=== PATIENT | female | born 1950 | race Caucasian/White ===

== ENCOUNTER → 2016-12-01 | Outpatient (CLI) | payer MEDICARE | END | disposition home or self-care (01) | LOC: PETCFH 08:49 | PROVIDERS: ATTEND Specialist | DX: C88.4 Extranodal marginal zone B-cell lymphoma of mucosa-associated lymphoid tissue [MALT-lymphoma] (principal) | CPT/HCPCS: 78815; A9552 ==

== ENCOUNTER → 2017-03-04 | Outpatient (CLI) | payer MEDICARE | END | disposition home or self-care (01) | LOC: CFH 13:14 | PROVIDERS: ATTEND Obstetrics & Gynecology Gynecology | DX: Z12.31 Encounter for screening mammogram for malignant neoplasm of breast (principal) | CPT/HCPCS: G0202 ==

== ENCOUNTER → 2017-09-28 | Outpatient (CLI) | payer MEDICARE ==
[~2017-09-28] MED LIST: GADOBUTROL 7.5 MMOL/7.5 ML VIAL ONE
== END | disposition home or self-care (01) ==
LOC: CFH 14:27
PROVIDERS: ATTEND Ophthalmology
DX: C85.90 Non-Hodgkin lymphoma, unspecified, unspecified site (principal); M85.80 Other specified disorders of bone density and structure, unspecified site
CPT/HCPCS: 70543; 82565; A9585

== ENCOUNTER → 2017-10-27 | Outpatient (CLI) | payer MEDICARE | END | disposition home or self-care (01) | LOC: CFH 12:55 | PROVIDERS: ATTEND Internal Medicine | DX: Z13.820 Encounter for screening for osteoporosis (principal); M85.88 Other specified disorders of bone density and structure, other site; Z78.0 Asymptomatic menopausal state | CPT/HCPCS: 77080 ==

== ENCOUNTER → 2018-03-09 | Outpatient (CLI) | payer MEDICARE | END | disposition home or self-care (01) | LOC: ROC 08:39 | PROVIDERS: ATTEND Radiology Radiation Oncology | DX: C88.4 Extranodal marginal zone B-cell lymphoma of mucosa-associated lymphoid tissue [MALT-lymphoma] (principal) | CPT/HCPCS: 99212; G0463 ==

== ENCOUNTER → 2018-04-14 | Outpatient (CLI) | payer MEDICARE | END | disposition home or self-care (01) | LOC: CFH 12:26 | PROVIDERS: ATTEND Obstetrics & Gynecology Gynecology | DX: Z12.31 Encounter for screening mammogram for malignant neoplasm of breast (principal) | CPT/HCPCS: 77063; 77067 ==